=== PATIENT | male | born 1945 | race Caucasian/White ===

== ENCOUNTER 2019-11-18 11:48 | Emergency (ER) | payer BC ==
[~2019-11-18] VITALS: Ht 175.3 cm; Wt 126.3 kg
--- NOTE | 2019-11-18 12:20 | PHYS DOC ---
Past History Past Medical History: Cancer, High Cholesterol, Hypertension Past Surgical History: Cholecystectomy, Other Additional Past Surgical Histo: Prostat. Alcohol Use: None General Adult EDM: Chief Complaint: BACK PAIN OR INJURY HPI: HPI: 73-year-old male presents with left shoulder "pain". The patient states that for last 1 week he has had a vibration type feeling like "a tuning fork vibrating through my left upper chest and shoulder". It is not painful. He denies shortness of breath or diaphoresis. Patient does not have a history of heart attack or stents. He does have a mild arrhythmia according to his PCP. It is not atrial fibrillation and has not been given an official final diagnosis. The patient is here visiting from [place]. Given the persistence of the symptoms, his family is concerned it could be something more serious. The patient's father had a heart attack in his mid 70s. He is wants to make sure there is nothing serious going on that he is ignoring. Denies fever or chills. Review of Systems: Review of Systems: Constitutional: Denies fever or chills Eyes: Denies change in visual acuity HENT: Denies nasal congestion or sore throat Respiratory: Denies cough or shortness of breath Cardiovascular: Vibration feeling in the left upper lateral chest GI: Denies abdominal pain, nausea, vomiting, bloody stools or diarrhea : Denies dysuria Musculoskeletal: "Shoulder pain" Integument: Denies rash Neurologic: Denies headache, focal weakness or sensory changes Endocrine: Denies polyuria or polydipsia Lymphatic: Denies swollen glands Psychiatric: Denies depression or anxiety Heart Score: Risk Factors: Risk Factors: DM, Current or recent (<one month) smoker, HTN, HLP, family history of CAD, obesity. Risk Scores: Score 0 - 3: 2.5% MACE over next 6 weeks - Discharge Home Score 4 - 6: 20.3% MACE over next 6 weeks - Admit for Clinical Observation Score 7 - 10: 72.7% MACE over next 6 weeks - Early Invasive Strategies Allergies: Allergies: Allergies Coded Allergies Type Severity Reaction Last Updated Verified No Known Drug Allergies 11/18/19 No Physical Exam: PE: Constitutional: Well developed, morbidly obese, well nourished, no acute distress, non-toxic appearance. [] HENT: Normocephalic, atraumatic, bilateral external ears normal, oropharynx moist, no oral exudates, nose normal. [] Eyes: PERRLA, EOMI, conjunctiva normal, no discharge. [] Neck: Normal range of motion, no tenderness, supple, no stridor. [] Cardiovascular:Heart rate regular rhythm, no murmur [] Lungs & Thorax: Bilateral breath sounds clear to auscultation [] Abdomen: Bowel sounds normal, soft, no tenderness, no masses, no pulsatile masses. [] Skin: Warm, dry, no erythema, no rash. [] Back: No tenderness, no CVA tenderness. [] Extremities: No tenderness, no cyanosis, no clubbing, ROM intact, no edema. [] Neurologic: Alert and oriented X 3, normal motor function, normal sensory function, no focal deficits noted. [] Psychologic: Affect normal, judgement normal, mood normal. [] Current Patient Data: Vital Signs: Vital Signs Date Time Temp Pulse Resp B/P (MAP) Pulse Ox O2 Delivery O2 Flow Rate FiO2 11/18/19 11:59 98.1 78 16 157/78 (104) 96 Room Air EKG: EKG: Sinus rhythm, rate 69, normal axis, no ST elevation or depression. PACs. [] Radiology/Procedures: Radiology/Procedures: [] Impressions: Three-view cervical spine dated 11/18/2019. No comparison available. Clinical data indication: Chest pain. FINDINGS: AP, lateral and odontoid views obtained. Sagittal alignment is anatomic. Vertebral body heights are maintained. No prevertebral soft tissue swelling. Posterior elements are intact. Mild endplate hypertrophic changes throughout with multilevel mild disc space narrowing and facet arthropathy. C1-C2 articulation unremarkable. IMPRESSION: 1. No acute radiographic abnormality. 2. Mild multilevel spondylosis. Electronically signed by: Nasir Tom MD (11/18/2019 1:06 PM) [facility] [place] DICTATED AND SIGNED BY: NASIR TOM MD DATE: 11/18/19 1306 CC: ASAEL WINSTON DO; ALIYAH SPANN MD; NON,STAFF ~ Two-view chest dated 11/18/2019. No comparison available. CLINICAL INDICATION: Chest pain. FINDINGS: PA and lateral views obtained. Heart and mediastinal contours within normal limits. Lungs are somewhat hyperinflated but otherwise clear. There is some patchy and linear opacities in the lower lobes no consolidation or pleural effusion. No pneumothorax. IMPRESSION: Mild patchy and linear opacity at both lung bases, likely scar or atelectasis. Electronically signed by: Nasir Tom MD (11/18/2019 1:03 PM) [facility] DICTATED AND SIGNED BY: NASIR TOM MD DATE: 11/18/19 1303 CC: ASAEL WINSTON DO; ALIYAH SPANN MD; NON,STAFF ~ 3 views left shoulder dated 11/18/2019. No comparison available. Clinical data indication: Pain. FINDINGS: 3 views left shoulder show normal bony alignment. No displaced fracture. No acute osseous or articular abnormality. There is mild to moderate degenerative change of the glenohumeral joint. No periostitis or bone destruction. IMPRESSION: No acute radiographic abnormality. Mild to moderate degenerative change at the glenohumeral joint. Electronically signed by: Nasir Tom MD (11/18/2019 1:04 PM) [facility] DICTATED AND SIGNED BY: NASIR TOM MD DATE: 11/18/19 1304 CC: ASAEL WINSTON DO; ALIYAH SPANN MD; NON,STAFF ~ Course & Med Decision Making: Course & Med Decision Making Pertinent Labs and Imaging studies reviewed. (See chart for details) The patient's EKG is negative for acute findings. His x-rays are negative for acute findings. There is no obvious evidence of degenerative change in the neck that would make his symptoms likely an impinged nerve. This also cannot be ruled out with plain film imaging. The patient's labs are unremarkable. This appears to be unlikely to be cardiopulmonary. I do not see any acute life- threatening condition. This could still be impinged nerve of some type. He will follow-up with his primary care physician when he returns home. He is stable for discharge at this time. [] Dragon Disclaimer: Pauline Disclaimer: This electronic medical record was generated, in whole or in part, using a voice recognition dictation system. Departure Departure: Impression: Primary Impression: Left shoulder pain Qualified Codes: M25.512 - Pain in left shoulder Additional Impression: Chest wall pain Disposition: 01 HOME/RESIDENCE PRIOR TO ADM Condition: STABLE Referrals: NON,STAFF (PCP) Patient Instructions: Chest Wall Pain, [id number], Pinched Nerve ASAEL WINSTON DO November 18, 2019 12:20
--- NOTE | 2019-11-18 13:01 | EKG ---
[address] [address] Test Date: 2019-11-18 Test Time: 12:54:17 Pat Name: NABIL BENJAMIN Department: Room: Gender: M [employer]: : [id number] Requested By: ASAEL WINSTON Order Number: [id number] Reading MD: Ambrocio Avalos Measurements Intervals [place] Rate: 69 P: 38 KS: 156 QRS: 9 QRSD: 84 T: 29 QT: 412 QTc: 443 Interpretive Statements SINUS RHYTHM ATRIAL PREMATURE COMPLEX(ES) Electronically Signed On 11-20-2019 15:45:42 CDT by Ambrocio Avalos
--- NOTE | 2019-11-18 13:06 | RAD ---
Two-view chest dated 11/18/2019. No comparison available. CLINICAL INDICATION: Chest pain. FINDINGS: PA and lateral views obtained. Heart and mediastinal contours within normal limits. Lungs are somewhat hyperinflated but otherwise clear. There is some patchy and linear opacities in the lower lobes no consolidation or pleural effusion. No pneumothorax. IMPRESSION: Mild patchy and linear opacity at both lung bases, likely scar or atelectasis. Electronically signed by: Nasir Tom MD (11/18/2019 1:03 PM) [facility]
--- NOTE | 2019-11-18 13:07 | RAD ---
3 views left shoulder dated 11/18/2019. No comparison available. Clinical data indication: Pain. FINDINGS: 3 views left shoulder show normal bony alignment. No displaced fracture. No acute osseous or articular abnormality. There is mild to moderate degenerative change of the glenohumeral joint. No periostitis or bone destruction. IMPRESSION: No acute radiographic abnormality. Mild to moderate degenerative change at the glenohumeral joint. Electronically signed by: Nasir Tom MD (11/18/2019 1:04 PM) [facility]
--- NOTE | 2019-11-18 13:08 | RAD ---
Three-view cervical spine dated 11/18/2019. No comparison available. Clinical data indication: Chest pain. FINDINGS: AP, lateral and odontoid views obtained. Sagittal alignment is anatomic. Vertebral body heights are maintained. No prevertebral soft tissue swelling. Posterior elements are intact. Mild endplate hypertrophic changes throughout with multilevel mild disc space narrowing and facet arthropathy. C1-C2 articulation unremarkable. IMPRESSION: 1. No acute radiographic abnormality. 2. Mild multilevel spondylosis. Electronically signed by: Nasir Tom MD (11/18/2019 1:06 PM) [facility]
[2019-11-18 13:43] LABS: BASO % 1 % (0-3); CREATININE 0.9 mg/dL (0.7-1.3); EOS # 0.1 x10^3/uL (0.0-0.7); EOS % 1 % (0-3); GFR 82.9; HEMATOCRIT 51.5 % (39.0-53.0); HEMOGLOBIN 17.1 g/dL (13.0-17.5); LYMPH # 1.7 x10^3/uL (1.0-4.8); LYMPH % 25 % (24-48); MEAN CORPUSCULAR HEMOGLOBIN 30 pg (25-35); MEAN CORPUSCULAR HGB CONC 33 g/dL (31-37); MEAN CORPUSCULAR VOLUME 91 fL (79-100); MONO # 0.5 x10^3/uL (0.0-1.1); MONO % 7 % (0-9); NEUT # 4.4 x10^3uL (1.8-7.7); NEUT % 66 % (31-73); PLATELET COUNT 136 x10^3/uL (140-400); POTASSIUM 3.9 mmol/L (3.5-5.1); RED BLOOD COUNT 5.64 x10^6/uL (4.30-5.70); RED CELL DISTRIBUTION WIDTH 14.2 % (11.5-14.5); WHITE BLOOD COUNT 6.7 x10^3/uL (4.0-11.0)
[2019-11-18 13:49] LABS: ALBUMIN 3.8 g/dL (3.4-5.0); TOTAL BILIRUBIN 0.9 mg/dL (0.2-1.0); TOTAL PROTEIN 7.6 g/dL (6.4-8.2)
[2019-11-18 13:58] VITALS: BP 145/79
== END 2019-11-18 14:20 | disposition home or self-care (01) ==
LOC: ER 11:48
DX: M25.512 Pain in left shoulder (principal); R07.89 Other chest pain; E78.00 Pure hypercholesterolemia, unspecified; I10 Essential (primary) hypertension; E66.01 Morbid (severe) obesity due to excess calories; Z68.41 Body mass index [BMI] 40.0-44.9, adult
CPT/HCPCS: 36415; 71046; 72040; 73030; 80053; 84484; 85025; 93005; 99285